=== PATIENT | male | born 1960 | race Caucasian/White ===

== ENCOUNTER 2017-08-18 09:37 | Day surgery (SDC) | payer BC ==
[~2017-08-18 09:37] MED LIST: Acetaminophen/oxyCODONE 325-7.5 MG Tab PO ONE; Bupivacaine 25%/EPINEPHrine/PF 30 ML ONE; Lactated Ringers 1,000 ML IV SCH; Lidocaine 1% with EPINEPHrine 1:100,000 20 ML MDV ONE; Octyl 2-Cyanoacrylate 1 Tube ONE; ceFAZolin 2 GM in Premix Bag 1 BAG IV ONE
[2017-08-18] MEDS ORDERED: Dexamethasone 4 MG/ML 5 ML MDV ONE (10:02)
[2017-08-18] MEDS ORDERED: Lidocaine 2% 5 ML SDV ONE (10:02)
[2017-08-18] MEDS ORDERED: diphenhydrAMINE 50 MG/ML SDV ONE (10:02)
[2017-08-18] MEDS ORDERED: Midazolam 1 MG/ML 2 ML SDV ONE (10:02)
[2017-08-18] MEDS ORDERED: fentaNYL 250 MCG/5 ML SDV ONE (10:02)
[2017-08-18] MEDS ORDERED: Propofol 200 MG/20 ML SDV ONE (10:02)
[2017-08-18] MEDS ORDERED: Rocuronium 10 MG/ML 10 ML Syringe ONE (10:02)
[2017-08-18] MEDS ORDERED: Ondansetron 4 MG/2 ML SDV ONE (10:02)
--- NOTE | 2017-08-18 10:22 | PCM.PREANE ---
Preanesthetic Assessment - Anesthesia/Transfusion/Family Hx Anesthesia History: Prior Anesthesia Without Reaction Family History of Anesthesia Reaction: No Transfusion History: No Prior Transfusion(s) Intubation History: Unknown - Review of Systems General: No Symptoms Pulmonary: No Symptoms Cardiovascular: No Symptoms Gastrointestinal: No Symptoms Neurological: No Symptoms Other: Reports: None - Physical Assessment Height: 1.8 m Weight: 75.296 kg ASA Class: 2 Mental Status: Alert & Oriented x3 Airway Class: Mallampati = 2 Dentition: Reports: Dentures (upper and lower) Thyro-Mental Finger Breadths: 3 Mouth Opening Finger Breadths: 2 ROM/Head Extension: Full Lungs: Clear to Auscultation, Normal Respiratory Effort Cardiovascular: Regular Rate, Regular Rhythm - Allergies Allergies/Adverse Reactions: Allergies Allergy/AdvReac Type Severity Reaction Status Date / Time No Known Allergies Allergy Verified 08/14/17 10:39 - Blood Blood Available: No - Anesthesia Plan Pre-Op Medication Ordered: None - Acknowledgements Anesthesia Type Planned: General Anesthesia Pt an Appropriate Candidate for the Planned Anesthesia: Yes Alternatives and Risks of Anesthesia Discussed w Pt/Guardian: Yes Pt/Guardian Understands and Agrees with Anesthesia Plan: Yes PreAnesthesia Questionnaire HEENT History: Reports: Other (See Below) Other HEENT History: uses reading glasses, has upper and lower dentures Other Respiratory History: has smoked 2 PPd for 18 years Gastrointestinal History: Reports: PUD Dermatologic History: Reports: Psoriasis Other Dermatologic History: takes methotrexate for psoriasis - Past Surgical History GI Surgical History: Reports: Hernia, Inguinal (as baby) Other GI Surgeries/Procedures: had repair of gastric ulcer - SUBSTANCE USE Smoking Status *Q: Current Every Day Smoker (1 ppd) Tobacco Use Within Last Twelve Months: Cigarettes Days Per Week of Alcohol Use: 7 Number of Drinks Per Day: 3 Total Drinks Per Week: 21 Recreational Drug Use History: No - HOME MEDS Home Medications: Home Meds Folic Acid 1 mg PO DAILY 08/14/17 [History] Methotrexate 5 tab PO ASDIRECTED 08/14/17 [History] - CURRENT (IN HOUSE) MEDS Current Meds: Current Medications Lactated Ringer's (Ringers, Lactated) 1,000 mls @ 125 mls/hr IV ASDIRECTED ZBIGNIEW Discontinued Medications Dexamethasone (Dexamethasone) Confirm Administered Dose 20 mg .ROUTE .STK-MED ONE Stop: 08/18/17 10:03 Diphenhydramine HCl (Benadryl) Confirm Administered Dose 50 mg .ROUTE .STK-MED ONE Stop: 08/18/17 10:03 Fentanyl (Sublimaze) Confirm Administered Dose 250 mcg .ROUTE .STK-MED ONE Stop: 08/18/17 10:03 Cefazolin Sodium/Dextrose 2 gm (/ Premix) 50 mls @ 100 mls/hr IV ONETIME ONE Stop: 08/18/17 05:29 Bupivacaine HCl/Epinephrine Bitart (Sensorc Mpf 0.25%-Epi 1:093630) Confirm Administered Dose 30 mls @ as directed .ROUTE .STK-MED ONE Stop: 08/18/17 07:47 Lidocaine (Xylocaine-Mpf 2%) Confirm Administered Dose 5 ml .ROUTE .STK-MED ONE Stop: 08/18/17 10:03 Lidocaine/Epinephrine (Xylocaine 1% With Epinephrine 1:100,000) Confirm Administered Dose 20 ml .ROUTE .STK-MED ONE Stop: 08/18/17 07:46 Midazolam HCl (Versed 1 Mg/Ml) Confirm Administered Dose 2 mg .ROUTE .STK-MED ONE Stop: 08/18/17 10:03 Octyl Cyanoacrylate (Dermabond Advance) Confirm Administered Dose 1 applic .ROUTE .STK-MED ONE Stop: 08/18/17 07:46 Ondansetron HCl (Zofran) Confirm Administered Dose 4 mg .ROUTE .STK-MED ONE Stop: 08/18/17 10:03 Oxycodone/Acetaminophen (Percocet 325-7.5 Mg) 1 tab PO ONETIME ONE Stop: 08/18/17 08:42 Propofol (Diprivan 20 Ml) Confirm Administered Dose 200 mg .ROUTE .STK-MED ONE Stop: 08/18/17 10:03 Rocuronium [place] (Zemuron) Confirm Administered Dose 100 mg .ROUTE .STK-MED ONE Stop: 08/18/17 10:03
[2017-08-18] MEDS ORDERED: Glycopyrrolate 0.2 MG/ML SDV ONE (10:33)
[2017-08-18] MEDS ORDERED: Neostigmine Methylsulfate 1 MG/ML 5 ML Syringe ONE (10:33)
[2017-08-18] MEDS ORDERED: Ketorolac 30 MG/ML SDV ONE (10:55)
[2017-08-18] MEDS ORDERED: HYDROmorphone 2 MG/ML SDV ONE (11:41)
[2017-08-18] MEDS ORDERED: fentaNYL 100 MCG/2 ML SDV IVPUSH PRN (11:47)
[2017-08-18] MEDS ORDERED: ePHEDrine 50 MG/ML SDV ONE (11:58)
--- NOTE | 2017-08-18 13:19 | PCM.POSTAN ---
POST ANESTHESIA ASSESSMENT - MENTAL STATUS Mental Status: Alert, Oriented - RESPIRATORY Respiratory Status: Respiratory Rate WNL, Airway Patent, O2 Saturation Stable, Supplemental Oxygen (per NC) - CARDIOVASCULAR CV Status: Pulse Rate WNL, Blood Pressure Stable - GASTROINTESTINAL GI Status: No Symptoms - PAIN Pain Score: 2 - POST OP HYDRATION Hydration Status: Adequate & Stable - OBSERVATIONS Free Text/Narrative:: Pt resting in no distress and VSS.
--- NOTE | 2017-08-18 13:32 | PCM.OPNOTE ---
- General Post-Op/Procedure Note Date of Surgery/Procedure: 08/18/17 Operative Procedure(s): 1) R ing hernia rep w mesh. 2) thigh mass, exploration , incision and evacuate content Findings: 1) large direct hernia on R, no indirect hernia, rep w medium size plug and mesh ; [id number] Pre Op Diagnosis: r ih, and thigh mass Post-Op Diagnosis: Same Anesthesia Technique: General ET Tube Primary Surgeon: Phong Mccloud Pathology: L thigh mass, content, gs, and biopsy Complications: None Condition: Good Free Text/Narrative:: Intake & Output 08/17/17 08/18/17 08/18/17 22:59 06:59 14:59 Intake Total 1100 Output Total 175 Balance 925
--- NOTE | 2017-08-18 13:40 | OR ---
SURGEON: Phong Mccloud MD DATE OF PROCEDURE: 08/18/2017 PREOPERATIVE DIAGNOSES: 1. Inguinal hernia on the right. 2. Mass on the left thigh. PROCEDURES PERFORMED: Inguinal hernia repair with mesh on the right and left upper thigh mass excisional biopsy. COMPLICATIONS: None. FINDINGS: Very large direct inguinal hernia on the right and no indirect hernia, repaired with a medium-size plug. L thigh mass was not able to aspirate, and open up, inside was baker color debris, like epidermal cyst, but not white in color, evacuate content, and packed with 1/2 in plain gauze; PROCEDURE IN DETAIL: The patient was taken to the operating room and placed in the supine position. Upon induction of general endotracheal anesthesia, the patient's groin and inguinal area were prepped and draped in a sterile fashion. The scrotum was placed on top of the drape in case it needed to be maneuvered. An IV antibiotic was given prophylactically and after assessment of appropriate landmark, a transverse incision was made which was above inguinal ligament, and was then carefully taken down past the Francia fascia and exposed the external oblique where the cord is. The external ring was also identified and using a 15 blade, a small francy was made right on top of the cord and then using a Metzenbaum scissors, carefully opened up the fiber along its direction all the way to the external ring. The spermatic cord was then carefully lifted up from the inguinal canal. A [place] drain was then used to hold on to manipulate the cord and carefully dissect out from the inguinal floor. The cremasteric muscle was then opened up. Careful examined of the cord, dissected down the cremasteric muscle, failed to delineate any indirect hernia sac. a direct hernia was found medial to the cord; A medium plug was inserted into the direct hernia and followed with a mesh to reinforce the ing floor. The mesh was then anchored down by using 2-0 Prolene stitches to the periosteum of the pubic symphysis, then running down to the lateral aspect of the rectus muscle. The lateral part of the mesh was then anchored to the Zeferino ligament, again using 2-0 Prolene. The last few stitches also anchored the plug to make sure the plug is not migrating. There was one stitch placed at the end of the two tails. Where the cord exits out, a stitch was placed in the two tails to repair the internal ring. Upon conclusion of surgery, I used a finger to make sure the ring is not too tight and not too loose, followed with some irrigation. The external oblique was then repaired by use of 2-0 Vicryl and the recreation external ring was also tested, not too tight, not too loose, followed with 2-0 Vicryl and closed the Francia fascia and the skin stapled to approximate the skin, followed by appropriate dressing. When that was finished, the wound was completely closed and dressed up, attention now turn to the left thigh mass. It was re- prepped and draped in a sterile fashion and using aspiration needle failed to aspirate anything and using a 15 blade, it was opened resulted in large amount of weinstein color debris. It is not liquified, it is like solid, like sebaceous cyst. With tremendous amount of effort, took it out one by one and irrigation. The wound was packed and followed with appropriate dressing. The patient was awakened, extubated, and transferred to recovery room in hemodynamically stable condition. The patient tolerated the procedure well. There were no intraoperative complications. The mass itself is about 6 x 4 cm and the incision made to evacuate the content is 3.1 cm. The patient was then awakened, extubated and transferred to recovery room in a hemodynamically stable condition. The patient tolerated the procedure well. There were no intraoperative complications. Dr. Mccloud was present through the whole procedure. Just before surgery, a timeout was called. The patient was identified and procedure identified and procedure started. As always, thank you for the kind referral. JANEE / GRIFFIN /[id number] GALLITO
--- NOTE | 2017-08-18 13:52 | PCM48HPAN ---
Post Anesthesia Note - EVALUATION WITHIN 48HRS OF ANESTHETIC Vital Signs in Normal Range: Yes Patient Participated in Evaluation: Yes Respiratory Function Stable: Yes Airway Patent: Yes Cardiovascular Function Stable: Yes Hydration Status Stable: Yes Pain Control Satisfactory: Yes Nausea and Vomiting Control Satisfactory: Yes Mental Status Recovered: Yes Resp Rate: 14 - COMMENTS/OBSERVATIONS Free Text/Narrative:: Pt resting comfortably postop with no apparent anesthesia complications.
== END 2017-08-18 14:47 | disposition home or self-care (01) ==
LOC: MW.SDS 09:37
PROVIDERS: ATTEND Surgery
DX: K40.90 Unilateral inguinal hernia, without obstruction or gangrene, not specified as recurrent (principal); L72.0 Epidermal cyst; F17.200 Nicotine dependence, unspecified, uncomplicated; Z79.899 Other long term (current) drug therapy
CPT/HCPCS: 10160; 49505; 87070; 87075; 87205; 88304; C1781; J1100; J1170; J1200; J1885; J2250; J2405; J3010; 00840; A9270-GY; J2704

== ENCOUNTER 2017-09-26 07:56 | Day surgery (SDC) | payer BC ==
[~2017-09-26 07:56] MED LIST changes: -Acetaminophen/oxyCODONE 325-7.5 MG Tab PO ONE; -Lidocaine 1% with EPINEPHrine 1:100,000 20 ML MDV ONE; -ceFAZolin 2 GM in Premix Bag 1 BAG IV ONE
--- NOTE | 2017-09-26 08:44 | PCM.PREANE ---
Preanesthetic Assessment - Anesthesia/Transfusion/Family Hx Anesthesia History: Prior Anesthesia Without Reaction Family History of Anesthesia Reaction: No Transfusion History: No Prior Transfusion(s) Intubation History: Unknown - Review of Systems General: No Symptoms Pulmonary: No Symptoms Cardiovascular: No Symptoms Gastrointestinal: No Symptoms Neurological: No Symptoms Other: Reports: None - Physical Assessment O2 Sat by Pulse Oximetry: 96 Respiratory Rate: 16 Vital Signs: Last Vital Signs Temp 36.7 C 09/26/17 08:10 Pulse 68 09/26/17 08:10 Resp 16 09/26/17 08:10 BP 137/93 H 09/26/17 08:10 Pulse Ox 96 09/26/17 08:10 Height: 1.8 m Weight: 72.575 kg ASA Class: 2 Mental Status: Alert & Oriented x3 Airway Class: Mallampati = 2 Dentition: Reports: Dentures (upper and lower) Thyro-Mental Finger Breadths: 3 Mouth Opening Finger Breadths: 2 ROM/Head Extension: Full Lungs: Clear to Auscultation, Normal Respiratory Effort Cardiovascular: Regular Rate, Regular Rhythm - Allergies Allergies/Adverse Reactions: Allergies Allergy/AdvReac Type Severity Reaction Status Date / Time No Known Allergies Allergy Verified 09/25/17 10:04 - Blood Blood Available: No - Anesthesia Plan Pre-Op Medication Ordered: None - Acknowledgements Anesthesia Type Planned: MAC Pt an Appropriate Candidate for the Planned Anesthesia: Yes Alternatives and Risks of Anesthesia Discussed w Pt/Guardian: Yes Pt/Guardian Understands and Agrees with Anesthesia Plan: Yes PreAnesthesia Questionnaire HEENT History: Reports: Other (See Below) Other HEENT History: uses reading glasses, has upper and lower dentures Respiratory History: Reports: Other (See Below) Other Respiratory History: 1. PPD smoker for 35 years Gastrointestinal History: Reports: PUD Dermatologic History: Reports: Psoriasis Other Dermatologic History: takes Methotrexate for psoriasis - Past Surgical History GI Surgical History: Reports: Hernia, Inguinal (rightinguinal with exc. of left tigh lesion about a month ago), Other (See Below) Other GI Surgeries/Procedures: repair of perforated Gastric Ulcer - SUBSTANCE USE Smoking Status *Q: Current Every Day Smoker (1 ppd) Tobacco Use Within Last Twelve Months: Cigarettes Days Per Week of Alcohol Use: 7 Number of Drinks Per Day: 3 Total Drinks Per Week: 21 Recreational Drug Use History: No - HOME MEDS Home Medications: Home Meds Folic Acid 1 mg PO DAILY 08/14/17 [History] Methotrexate 5 tab PO ASDIRECTED 08/14/17 [History] - CURRENT (IN HOUSE) MEDS Current Meds: Current Medications Lactated Ringer's (Ringers, Lactated) 1,000 mls @ 125 mls/hr IV ASDIRECTED ZBIGNIEW Discontinued Medications Bupivacaine HCl/Epinephrine Bitart (Sensorc Mpf 0.25%-Epi 1:[id number]) Confirm Administered Dose 30 mls @ as directed .ROUTE .STK-MED ONE Stop: 09/26/17 07:25 Octyl Cyanoacrylate (Dermabond Advance) Confirm Administered Dose 1 applic .ROUTE .STK-MED ONE Stop: 09/26/17 07:25
[2017-09-26] MEDS ORDERED: fentaNYL 100 MCG/2 ML SDV ONE (09:20)
[2017-09-26] MEDS ORDERED: Midazolam 1 MG/ML 2 ML SDV ONE (09:21)
[2017-09-26] MEDS ORDERED: Propofol 200 MG/20 ML SDV ONE ×2 (09:21→09:48)
[2017-09-26] MEDS ORDERED: Acetaminophen/oxyCODONE 325-5 MG Tab PO ONE (09:29)
--- NOTE | 2017-09-26 10:27 | PCM.OPNOTE ---
- General Post-Op/Procedure Note Date of Surgery/Procedure: 09/26/17 Operative Procedure(s): excisional bx L thigh mass X2 Findings: 1) 4 X 3 cm incision for a 3 X 3 cm mass, ant 2 ) 3 X 3 cm incision for a 2 X 1 cm mass, post; [id number] Pre Op Diagnosis: l thigh masses X 2 Post-Op Diagnosis: Same Anesthesia Technique: Moderate Sedation Primary Surgeon: Phong Mccloud Pathology: sent Complications: None Condition: Good
--- NOTE | 2017-09-26 10:31 | PCM.POSTAN ---
POST ANESTHESIA ASSESSMENT - MENTAL STATUS Mental Status: Alert, Oriented - RESPIRATORY Respiratory Status: Respiratory Rate WNL, Airway Patent, O2 Saturation Stable - CARDIOVASCULAR CV Status: Pulse Rate WNL, Blood Pressure Stable - GASTROINTESTINAL GI Status: No Symptoms - PAIN Pain Score: 0 - POST OP HYDRATION Hydration Status: Adequate & Stable
--- NOTE | 2017-09-26 10:56 | PCM48HPAN ---
Post Anesthesia Note - EVALUATION WITHIN 48HRS OF ANESTHETIC Vital Signs in Normal Range: Yes Patient Participated in Evaluation: Yes Respiratory Function Stable: Yes Airway Patent: Yes Cardiovascular Function Stable: Yes Hydration Status Stable: Yes Pain Control Satisfactory: Yes Nausea and Vomiting Control Satisfactory: Yes Mental Status Recovered: Yes Resp Rate: 15 - COMMENTS/OBSERVATIONS Free Text/Narrative:: no anesthesia problems
--- NOTE | 2017-09-26 13:57 | OR ---
SURGEON: Phong Mccloud MD DATE OF PROCEDURE: 09/26/2017 PREOPERATIVE DIAGNOSIS: Left thigh mass x2, anterior-posterior. POSTOPERATIVE DIAGNOSIS: Left thigh mass x2, anterior-posterior. PROCEDURES PERFORMED: Excision and biopsy. COMPLICATIONS: None. FINDINGS: The medial anterior mass with incision of 4 x 3 cm for 3 x 3 cm mass, anterior excised, sent to pathology; posterior one is 3 x 3 cm incision for 2 x 1 cm mass, posterior, excised, sent for pathology. The anterior one is ruptured, in fact sebaceous cyst left behind and the posterior one is a like a white roverto. PROCEDURE IN DETAIL: The patient was taken to the operating room and placed in the supine position. Upon induction of mild general sedation, the patient was prepped and draped in sterile fashion. The anterior medial mass is the residual of ruptured infected sebaceous cyst. He was prepped and draped in a sterile fashion and local anesthetic infiltrated followed with a 15 blade and fish-mouth incision was made. A 4 x 3 cm incision and the mass 3 X 3 cm excised and sent for pathology. The wound was then irrigated and closed with 3-0 Ethilon running baseball stitch. The patient was then redraped and prepped on the posterior mass and again it is on the left thigh. A fish-mouth incision was made and incision is 3 x 3 cm for 2.1 cm mass, excised en bloc, sent for pathology, closed with 3-0 Ethilon running baseball stitch followed by appropriate dressing. The patient was awakened, transferred to recovery room in hemodynamically stable condition. The patient tolerated the procedure well. There were no intraoperative complications. Dr. Mccloud was present throughout the procedure. JANEE / GRIFFIN /[id number] MTDD
== END 2017-09-26 11:20 | disposition home or self-care (01) ==
LOC: MW.SDS 07:56
PROVIDERS: ATTEND Surgery
DX: L72.0 Epidermal cyst (principal); F17.210 Nicotine dependence, cigarettes, uncomplicated
CPT/HCPCS: 11402; 11403; J0690; J2250; J3010; J7120; 88304; A9270-GY; J2704

== ENCOUNTER 2017-10-17 08:50 | Day surgery (SDC) | payer BC ==
[~2017-10-17 08:50] MED LIST changes: -Bupivacaine 25%/EPINEPHrine/PF 30 ML ONE; +Midazolam 1 MG/ML 2 ML SDV ONE; -Octyl 2-Cyanoacrylate 1 Tube ONE; +Propofol 200 MG/20 ML SDV ONE; +fentaNYL 100 MCG/2 ML SDV ONE
--- NOTE | 2017-10-17 10:04 | PCM.PREANE ---
Preanesthetic Assessment - Anesthesia/Transfusion/Family Hx Anesthesia History: Prior Anesthesia Without Reaction Family History of Anesthesia Reaction: No Transfusion History: No Prior Transfusion(s) Intubation History: Unknown - Review of Systems General: No Symptoms Pulmonary: No Symptoms Cardiovascular: No Symptoms Gastrointestinal: Other (h/o diverticulosis and anemia) Neurological: No Symptoms Other: Reports: None - Physical Assessment Height: 1.8 m Weight: 72.575 kg ASA Class: 2 Mental Status: Alert & Oriented x3 Airway Class: Mallampati = 2 Dentition: Reports: Dentures (upper and lower) Thyro-Mental Finger Breadths: 3 Mouth Opening Finger Breadths: 3 ROM/Head Extension: Full Lungs: Clear to Auscultation, Normal Respiratory Effort Cardiovascular: Regular Rate, Regular Rhythm - Allergies Allergies/Adverse Reactions: Allergies Allergy/AdvReac Type Severity Reaction Status Date / Time No Known Allergies Allergy Verified 09/25/17 10:04 - Blood Blood Available: No - Anesthesia Plan Pre-Op Medication Ordered: None - Acknowledgements Anesthesia Type Planned: MAC Pt an Appropriate Candidate for the Planned Anesthesia: Yes Alternatives and Risks of Anesthesia Discussed w Pt/Guardian: Yes Pt/Guardian Understands and Agrees with Anesthesia Plan: Yes PreAnesthesia Questionnaire HEENT History: Reports: Other (See Below) Other HEENT History: uses reading glasses, has upper and lower dentures Respiratory History: Reports: Other (See Below) Other Respiratory History: has smoked 2 PPd for 18 years Gastrointestinal History: Reports: Diverticulosis, PUD Musculoskeletal History: Reports: None Hematologic History: Reports: Other (See Below) (h/o anemia) Dermatologic History: Reports: Psoriasis Other Dermatologic History: takes methotrexate for psoriasis - Past Surgical History Head Surgeries/Procedures: Reports: None GI Surgical History: Reports: Hernia, Inguinal Other GI Surgeries/Procedures: had repair of gastric ulcer Musculoskeletal Surgical History: Reports: Other (See Below) Other Musculoskeletal Surgeries/Procedures:: excisional bx of upper lt thigh mass on 09/26/17 - SUBSTANCE USE Smoking Status *Q: Current Every Day Smoker (1ppd) Tobacco Use Within Last Twelve Months: Cigarettes Days Per Week of Alcohol Use: 7 Number of Drinks Per Day: 3 Total Drinks Per Week: 21 Recreational Drug Use History: No - HOME MEDS Home Medications: Home Meds Folic Acid 1 mg PO DAILY 08/14/17 [History] Methotrexate 5 tab PO ASDIRECTED 08/14/17 [History] - CURRENT (IN HOUSE) MEDS Current Meds: Current Medications Lactated Ringer's (Ringers, Lactated) 1,000 mls @ 125 mls/hr IV ASDIRECTED ZBIGNIEW Discontinued Medications Fentanyl (Sublimaze) Confirm Administered Dose 100 mcg .ROUTE .STK-MED ONE Stop: 10/17/17 07:35 Midazolam HCl (Versed 1 Mg/Ml) Confirm Administered Dose 2 mg .ROUTE .STK-MED ONE Stop: 10/17/17 07:36 Propofol (Diprivan 20 Ml) Confirm Administered Dose 200 mg .ROUTE .STK-MED ONE Stop: 10/17/17 07:35
[2017-10-17] MEDS ORDERED: Propofol 200 MG/20 ML SDV ONE (10:17)
[2017-10-17] MEDS ORDERED: Lidocaine 2% 5 ML SDV ONE (10:19)
--- NOTE | 2017-10-17 10:47 | PCM.OPNOTE ---
- General Post-Op/Procedure Note Date of Surgery/Procedure: 10/17/17 Operative Procedure(s): colonoscopy w bx Findings: see dict [id number] Pre Op Diagnosis: anemia and diverticulitis Post-Op Diagnosis: polyp and diverticulosis Anesthesia Technique: Moderate Sedation Primary Surgeon: Phong Mccloud Pathology: bx at 65cm and 45 cm and r colon Complications: None Condition: Good
--- NOTE | 2017-10-17 10:53 | PCM.POSTAN ---
POST ANESTHESIA ASSESSMENT - MENTAL STATUS Mental Status: Alert, Oriented - RESPIRATORY Respiratory Status: Respiratory Rate WNL, Airway Patent, O2 Saturation Stable, Supplemental Oxygen - CARDIOVASCULAR CV Status: Pulse Rate WNL, Blood Pressure Stable - GASTROINTESTINAL GI Status: No Symptoms - PAIN Pain Score: 0 - POST OP HYDRATION Hydration Status: Adequate & Stable - OBSERVATIONS Free Text/Narrative:: no anesthesia problems
--- NOTE | 2017-10-17 14:33 | OR ---
SURGEON: Phong Mccloud MD DATE OF PROCEDURE: 10/17/2017 PREOPERATIVE DIAGNOSES: Anemia and diverticulitis. POSTOPERATIVE DIAGNOSIS: Anemia and diverticulitis. PROCEDURE PERFORMED: Colonoscopy with biopsy. PROCEDURE IN DETAIL: The patient was taken to the endoscopy room. A time out was called, patient identified, and procedure identified. Diprivan was then administrated. Patient went from awake to sleep, hearing doctor talking or door closing is normal. Perineum inspection and digital examination were then performed. A well- lubricated colonoscope was gently inserted through the rectum, advanced past the rectosigmoid junction, the descending colon, splenic flexure, transverse colon, hepatic flexure, ascending colon, arrived to the cecum. Cecum was identified as dictated in the finding. Then the scope was carefully withdrawn while attention was paid to the mucosal surface for any abnormality. Air will be sucked out during the scope withdrawal. At the rectum, retroflexed to examine any rectal diseases, fistula or hemorrhoids. During mucosal examination, biopsy performed. Patient tolerated procedure well. There were no intraoperative complications, and Dr. Mccloud was present throughout the whole procedure. FINDINGS: 1. The patient is easily sedated with [employer] and Diprivan. The patient is soundly snoring. 2. Bowel prep is left to be desirable with moderate amount of liquid stool. No semi-formed stool. 3. The patient's colon is rather straight forward. Cecum indicated by ileocecal fold, one-to-one indentation, light emittance, appendiceal orifice. Mucosa examined upon scope pulling out. The patient have 3 areas that did look a little bit normal, can be possible polyp. The first one is at distance of 65, which is just a few ring distal to the ileocecal valve and that is like 65 cm when the scope go in, that is like a ring of tissue attached to the colon and that was biopsied and then when the scope come out, aside the area, there is a triangle area that is a little bit distal to the same previous biopsy and that also looked normal, biopsied and then one more area at 45 cm when the scope come out, that is similar thing like some tissue slap on the colon mucosa and again 3 of these were all biopsied, not removed, because this area involved too much and cannot be removed and so was only biopsied and probably, the patient would benefit from repeat colonoscopy in surveillance in about 12 months. Other than that, the patient also has diverticulosis on the left colon. No signs or symptoms of diverticulitis. No inflammation, stricture, ulceration, AV malformation. The patient does have inflammation in the right colon and it was randomly biopsied too. The patient has significant internal hemorrhoids and moderate external hemorrhoids. The patient would benefit from repeat colonoscopy in 12 to 18 months. The patient's colonoscopy is not very easy because the patient fought a lot during the procedure. Other than that, everything went well. JANEE MOYA /[id number] MTDJessica
== END 2017-10-17 12:20 | disposition home or self-care (01) ==
LOC: MW.SDS 08:50
PROVIDERS: ATTEND Surgery
DX: D64.9 Anemia, unspecified (principal); D12.2 Benign neoplasm of ascending colon; D12.4 Benign neoplasm of descending colon; D12.5 Benign neoplasm of sigmoid colon; K57.30 Diverticulosis of large intestine without perforation or abscess without bleeding; K52.9 Noninfective gastroenteritis and colitis, unspecified; K64.8 Other hemorrhoids; K64.4 Residual hemorrhoidal skin tags; F17.210 Nicotine dependence, cigarettes, uncomplicated; Z79.899 Other long term (current) drug therapy
CPT/HCPCS: 45380; J2250; J3010; J7120; J2704

== ENCOUNTER 2025-01-10 19:49 | Emergency (ER) | payer BC ==
[2025-01-10 20:36] LABS: BASOPHILS ABSOLUTE AUTO 0.06 K/uL (0.00-0.20); BASOPHILS PERCENT AUTO 0.7 % (0.0-1.0); EOSINOPHILS ABSOLUTE AUTO 0.26 K/uL (0.00-0.45); EOSINOPHILS PERCENT AUTO 2.8 % (0.0-6.0); IMMATURE GRAN ABSOLUTE AUTO 0.03 K/uL (0.00-0.05); IMMATURE GRAN PERCENT AUTO 0.3 % (0.0-0.4); LYMPHOCYTES ABSOLUTE AUTO 1.15 K/uL (1.00-4.80); LYMPHOCYTES PERCENT AUTO 12.6 % (24.0-44.0); MEAN PLATELET VOLUME 11.1 fL (9.4-12.4); MONOCYTES ABSOLUTE AUTO 1.19 K/uL (0.00-0.80); MONOCYTES PERCENT AUTO 13.0 % (0.0-8.0); NEUTROPHILS ABSOLUTE AUTO 6.45 K/uL (1.80-7.70); NEUTROPHILS PERCENT AUTO 70.6 % (41.0-71.0); NRBC ABSOLUTE 0.00 K/uL (0.00-0.02); NRBC PERCENT 0.0 /100WBC (0.0-0.2); PLATELET COUNT,PLT 157 K/uL (150-400); RED BLOOD CELL COUNT 4.61 M/uL (4.52-5.90); WHITE BLOOD CELL COUNT,WBC 9.14 K/uL (3.9-11.3)
== END 2025-01-10 21:13 | disposition home or self-care (01) ==
LOC: MW.ED 19:49
DX: R04.0 Epistaxis (principal); F17.210 Nicotine dependence, cigarettes, uncomplicated; Z75.3 Unavailability and inaccessibility of health-care facilities; Z79.899 Other long term (current) drug therapy
CPT/HCPCS: 36415; 85025; 99283